=== PATIENT | female | born 1980 | race Caucasian/White ===

== ENCOUNTER 2020-07-16 16:23 | Outpatient (CLI) | payer OTHER ==
--- NOTE | 2020-07-18 08:07 | XRAY Report ---
PROCEDURE: Shoulder 3 View RT INDICATIONS: R SHOULDER PAIN TECHNIQUE: 3 views of the shoulder were acquired. COMPARISON: None FINDINGS: Bones: No fractures or dislocations. No suspicious bony lesions. Visualized ribs appear intact. Soft tissues: No suspicious soft tissue calcifications. IMPRESSION: Normal appearance of the right shoulder. If pain persist with conservative management, c onsider MRI for further assessment. Reviewed by: BARBARA Moe on 07/18/2020 8:05 AM PDT Approved by: Luis Alberto Law MD on 07/18/2020 8:05 AM PDT Station ID: [id number]
== END 2020-07-16 16:24 | disposition home or self-care (01) ==
LOC: DI 16:23
PROVIDERS: ATTEND Physician Assistant Medical
DX: M25.511 Pain in right shoulder (principal)